=== PATIENT | male | born 2000 | race Caucasian/White ===

== ENCOUNTER 2025-04-03 14:06 | Emergency (ER) | payer BC, SELFPAY ==
--- OUTSIDE RECORDS SUMMARY | 2025-04-03 14:11 | XMS_ITS | Encounter Summary ---
Author Organization [facility] Address [address] [place] [address] Care Team Providers Care Business Systems Advisor Name Role Phone Opal Angela MD Primary Care Provider [phone] Encounter Details Date Type Department Care Team (Late st Contact Info) Description 1999 Outpatient Historical [facility] Pediatrics [facility] [address] [place] [address] Opal Angela MD [address] [place] [address] Social History Tobacco Use Types Packs/Day Years Used Date Smoking Tobacco: Never Assessed Sex and Gender Information Value Date Recorded Sex Assigned at Not on file Legal Sex Male 3:17 AM TOE POUNDER Gender Identity Not on file Sexual Orientation Not on file documented as of this encounter Plan of Treatment Not on file documented as of this encounter Visit Diagnoses Not on filedocumented in this encounter Care Teams Business Systems Advisor Relationship Specialty Start Date End Date pOal Angela MD [address] [place] [address] PCP - General 05/26/08 documented as of this encounter
--- OUTSIDE RECORDS SUMMARY | 2025-04-03 14:11 | XMS_ITS | Encounter Summary ---
Author Organization [facility] Address [address] [place] [address] Care Team Providers Care Certified Master Locksmith Name Role Phone Opal Angela MD Primary Care Provider [phone] Encounter Details Date Type Department Care Team (Late st Contact Info) Description 10/06/2004 Outpatient Historical [facility] Pediatrics [facility] [address] [place] [address] Opal Angela MD [address] [place] [address] Social History Tobacco Use Types Packs/Day Years Used Date Smoking Tobacco: Never Assessed Sex and Gender Information Value Date Recorded Sex Assigned at Not on file Legal Sex Male 3:17 AM INNOVATION MANAGER Gender Identity Not on file Sexual Orientation Not on file documented as of this encounter Plan of Treatment Not on file documented as of this encounter Visit Diagnoses Not on filedocumented in this encounter Care Teams Certified Master Locksmith Relationship Specialty Start Date End Date Opal Angela MD [address] [place] [address] PCP - General 05/26/08 documented as of this encounter
--- OUTSIDE RECORDS SUMMARY | 2025-04-03 14:12 | XMS_ITS | Encounter Summary ---
Author Organization [facility] Address [address] [place] [address] Care Team Providers Care Mine Supervisor Name Role Phone Opal Angela MD Primary Care Provider [phone] Encounter Details Date Type Department Care Team (Late st Contact Info) Description 08/31/2005 Outpatient Historical [facility] Pediatrics [facility] [address] [place] [address] Opal Angela MD [address] [place] [address] Social History Tobacco Use Types Packs/Day Years Used Date Smoking Tobacco: Never Assessed Sex and Gender Information Value Date Recorded Sex Assigned at Not on file Legal Sex Male 3:17 AM ENGINEERING AIDE Gender Identity Not on file Sexual Orientation Not on file documented as of this encounter Plan of Treatment Not on file documented as of this encounter Visit Diagnoses Not on filedocumented in this encounter Care Teams Mine Supervisor Relationship Specialty Start Date End Date Opal Angela MD [address] [place] [address] PCP - General 05/26/08 documented as of this encounter
--- OUTSIDE RECORDS SUMMARY | 2025-04-03 14:12 | XMS_ITS | Encounter Summary ---
Author Organization [facility] Address [address] [place] [address] Care Team Providers Care Pattern Hanger Name Role Phone Opal Angela MD Primary Care Provider [phone] Encounter Details Date Type Department Care Team (Late st Contact Info) Description 08/17/2005 Outpatient Historical [facility] Pediatrics [facility] [address] [facility] [address] Opal Angela MD [address] [place] [address] Social History Tobacco Use Types Packs/Day Years Used Date Smoking Tobacco: Never Assessed Sex and Gender Information Value Date Recorded Sex Assigned at Not on file Legal Sex Male 3:17 AM VAMP THROATER Gender Identity Not on file Sexual Orientation Not on file documented as of this encounter Plan of Treatment Not on file documented as of this encounter Visit Diagnoses Not on filedocumented in this encounter Care Teams Pattern Hanger Relationship Specialty Start Date End Date Opal Angela MD [address] [place] [address] PCP - General 05/26/08 documented as of this encounter
--- OUTSIDE RECORDS SUMMARY | 2025-04-03 14:12 | XMS_ITS | Encounter Summary ---
Author Organization [facility] Address [address] [place] [address] Care Team Providers Care Ice Cream Maker Name Role Phone Opal Angela MD Primary Care Provider [phone] Encounter Details Date Type Department Care Team (Late st Contact Info) Description 06/14/2005 Outpatient Historical [facility] Pediatrics [facility] [address] [place] [address] Jamee Landry MD NO ADDRESS ON FILE Social History Tobacco Use Types Packs/Day Years Used Date Smoking Tobacco: Never Assessed Sex and Gender Information Value Date Recorded Sex Assigned at Not on file Legal Sex Male 3:17 AM VOICE TEACHER Gender Identity Not on file Sexual Orientation Not on file documented as of this encounter Plan of Treatment Not on file documented as of this encounter Visit Diagnoses Not on filedocumented in this encounter Care Teams Ice Cream Maker Relationship Specialty Start Date End Date Opal Angela MD [address] [place] [address] PCP - General 05/26/08 documented as of this encounter
--- OUTSIDE RECORDS SUMMARY | 2025-04-03 14:12 | XMS_ITS | Encounter Summary ---
Author Organization [facility] Address [address] [place] [address] Care Team Providers Care Flap Maker Name Role Phone Opal Angela MD Primary Care Provider [phone] Encounter Details Date Type Department Care Team (Late st Contact Info) Description 10/19/2000 Outpatient Historical [facility] Pediatrics [facility] [address] [place] [address] Opal Angela MD [address] [place] [address] Social History Tobacco Use Types Packs/Day Years Used Date Smoking Tobacco: Never Assessed Sex and Gender Information Value Date Recorded Sex Assigned at Not on file Legal Sex Male 3:17 AM BODY MECHANIC Gender Identity Not on file Sexual Orientation Not on file documented as of this encounter Plan of Treatment Not on file documented as of this encounter Visit Diagnoses Not on filedocumented in this encounter Care Teams Flap Maker Relationship Specialty Start Date End Date Opal Angela MD [address] [place] [address] PCP - General 05/26/08 documented as of this encounter
--- OUTSIDE RECORDS SUMMARY | 2025-04-03 14:12 | XMS_ITS | Encounter Summary ---
Author Organization [facility] Address [address] [place] [address] Care Team Providers Care Risk Lead Name Role Phone Opal Angela MD Primary Care Provider [phone] Encounter Details Date Type Department Care Team (Late st Contact Info) Description 01/14/[address] [facility] Pediatrics [facility] [address] [facility] [place] [address] Alix Ortega MD [address] [address] Social History Tobacco Use Types Packs/Day Years Used Date Smoking Tobacco: Never Assessed Sex and Gender Information Value Date Recorded Sex Assigned at Not on file Legal Sex Male 3:17 AM METAL MIXER Gender Identity Not on file Sexual Orientation Not on file documented as of this encounter Plan of Treatment Not on file documented as of this encounter Visit Diagnoses Not on filedocumented in this encounter Care Teams Risk Lead Relationship Specialty Start Date End Date Opal Angela MD [address] [place] [address] PCP - General 05/26/08 documented as of this encounter
--- OUTSIDE RECORDS SUMMARY | 2025-04-03 14:12 | XMS_ITS | Encounter Summary ---
Author Organization [facility] Address [address] [place] [address] Care Team Providers Care Radiology Ct Technologist Name Role Phone Opal Angela MD Primary Care Provider [phone] Encounter Details Date Type Department Care Team (Late st Contact Info) Description 12/06/2004 Outpatient Historical [facility] [address] [facility] [facility] [place] [address] Opal Angela MD [address] [place] [address] Social History Tobacco Use Types Packs/Day Years Used Date Smoking Tobacco: Never Assessed Sex and Gender Information Value Date Recorded Sex Assigned at Not on file Legal Sex Male 3:17 AM TAPE EDGE MACHINE OPERATOR Gender Identity Not on file Sexual Orientation Not on file documented as of this encounter Plan of Treatment Not on file documented as of this encounter Visit Diagnoses Not on filedocumented in this encounter Care Teams Radiology Ct Technologist Relationship Specialty Start Date End Date Opal Angela MD [address] [place] [address] PCP - General 05/26/08 documented as of this encounter
--- OUTSIDE RECORDS SUMMARY | 2025-04-03 14:12 | XMS_ITS | Encounter Summary ---
Author Organization [facility] Address [address] [place] [address] Care Team Providers Care Motion Picture Equipment Supervisor Name Role Phone Opal Angela MD Primary Care Provider Encounter Details Date Type Department Care Team (Late st Contact Info) Description 11/20/2000 Outpatient Historical [facility] Pediatrics [facility] [address] [place] [address] Opal Angela MD [address] [place] [address] Social History Tobacco Use Types Packs/Day Years Used Date Smoking Tobacco: Never Assessed Sex and Gender Information Value Date Recorded Sex Assigned at Not on file Legal Sex Male 3:17 AM GRADUATE INTERN Gender Identity Not on file Sexual Orientation Not on file documented as of this encounter Plan of Treatment Not on file documented as of this encounter Visit Diagnoses Not on filedocumented in this encounter Care Teams Motion Picture Equipment Supervisor Relationship Specialty Start Date End Date Opal Angela MD [address] [place] [address] PCP - General 05/26/08 documented as of this encounter
--- OUTSIDE RECORDS SUMMARY | 2025-04-03 14:12 | XMS_ITS | Encounter Summary ---
Author Organization [facility] Address [address] [place] [address] Care Team Providers Care Ticket Printer Name Role Phone Opal Angela MD Primary Care Provider [phone] Encounter Details Date Type Department Care Team (Late st Contact Info) Description 05/27/2001 Outpatient Historical [facility] Pediatrics [facility] [address] [place] [address] Opal Angela MD [address] [place] [address] Social History Tobacco Use Types Packs/Day Years Used Date Smoking Tobacco: Never Assessed Sex and Gender Information Value Date Recorded Sex Assigned at Not on file Legal Sex Male 3:17 AM ADULT EDUCATION MANAGER Gender Identity Not on file Sexual Orientation Not on file documented as of this encounter Plan of Treatment Not on file documented as of this encounter Visit Diagnoses Not on filedocumented in this encounter Care Teams Ticket Printer Relationship Specialty Start Date End Date Opal Angela MD [address] [place] [address] PCP - General 05/26/08 documented as of this encounter
--- OUTSIDE RECORDS SUMMARY | 2025-04-03 14:12 | XMS_ITS | Encounter Summary ---
Author Organization [facility] Address [address] [place] [address] Care Team Providers Care Relationship Management Lead Name Role Phone Opal Angela MD Primary Care Provider [phone] Encounter Details Date Type Department Care Team (Late st Contact Info) Description 01/30/2005 Outpatient Historical [facility]s [facility] [address] [facility] [place] [address] Opal Angela MD [address] [place] [address] Social History Tobacco Use Types Packs/Day Years Used Date Smoking Tobacco: Never Assessed Sex and Gender Information Value Date Recorded Sex Assigned at Not on file Legal Sex Male 3:17 AM TEST ENGINEERING MANAGER Gender Identity Not on file Sexual Orientation Not on file documented as of this encounter Plan of Treatment Not on file documented as of this encounter Visit Diagnoses Not on filedocumented in this encounter Care Teams Relationship Management Lead Relationship Specialty Start Date End Date Opal Angela MD [address] [place] [address] PCP - General 05/26/08 documented as of this encounter
--- OUTSIDE RECORDS SUMMARY | 2025-04-03 14:12 | XMS_ITS | Encounter Summary ---
Author Organization [facility] Address [address] [place] [address] Care Team Providers Care Oxygen Equipment Technician Name Role Phone Opal Angela MD Primary Care Provider Encounter Details Date Type Department Care Team (Late st Contact Info) Description 1999 Outpatient Historical [facility] Pediatrics [facility] [address] [address] Opal Angela MD [address] [place] [address] Social History Tobacco Use Types Packs/Day Years Used Date Smoking Tobacco: Never Assessed Sex and Gender Information Value Date Recorded Sex Assigned at Not on file Legal Sex Male 3:17 AM PUBLIC HEALTH EDUCATOR Gender Identity Not on file Sexual Orientation Not on file documented as of this encounter Plan of Treatment Not on file documented as of this encounter Visit Diagnoses Not on filedocumented in this encounter Care Teams Oxygen Equipment Technician Relationship Specialty Start Date End Date Opal Angela MD [address] [place] [address] PCP - General 05/26/08 documented as of this encounter
--- OUTSIDE RECORDS SUMMARY | 2025-04-03 14:12 | XMS_ITS | Encounter Summary ---
Author Organization [facility] Address [address] [place] [address] Care Team Providers Care Facilities Maintenance Engineer Name Role Phone Opal Angela MD Primary Care Provider [phone] Encounter Details Date Type Department Care Team (Late st Contact Info) Description 03/31/2000 Outpatient Historical [facility] Pediatrics [facility] [address] [place] [place] [address] Alix Ortega MD [address] [address] Social History Tobacco Use Types Packs/Day Years Used Date Smoking Tobacco: Never Assessed Sex and Gender Information Value Date Recorded Sex Assigned at Not on file Legal Sex Male 3:17 AM APPLICATOR SPRAYER Gender Identity Not on file Sexual Orientation Not on file documented as of this encounter Plan of Treatment Not on file documented as of this encounter Visit Diagnoses Not on filedocumented in this encounter Care Teams Facilities Maintenance Engineer Relationship Specialty Start Date End Date Opal Angela MD [address] [place] [address] PCP - General 05/26/08 documented as of this encounter
--- OUTSIDE RECORDS SUMMARY | 2025-04-03 14:12 | XMS_ITS | Encounter Summary ---
Author Organization [facility] Address [address] [place] [address] Care Team Providers Care Wood Machinist Name Role Phone Opal Angela MD Primary Care Provider [phone] Encounter Details Date Type Department Care Team (Late st Contact Info) Description 10/02/2005 Outpatient Historical [facility]s [facility] [address] [facility] [place] [address] Opal Angela MD [address] [place] [address] Social History Tobacco Use Types Packs/Day Years Used Date Smoking Tobacco: Never Assessed Sex and Gender Information Value Date Recorded Sex Assigned at Not on file Legal Sex Male 3:17 AM TAP GRINDER Gender Identity Not on file Sexual Orientation Not on file documented as of this encounter Plan of Treatment Not on file documented as of this encounter Visit Diagnoses Not on filedocumented in this encounter Care Teams Wood Machinist Relationship Specialty Start Date End Date Opal Angela MD [address] [place] [address] PCP - General 05/26/08 documented as of this encounter
--- OUTSIDE RECORDS SUMMARY | 2025-04-03 14:12 | XMS_ITS | Encounter Summary ---
Author Organization [facility] Address [address] [place] [address] Care Team Providers Care Advanced Manufacturing Vice President Name Role Phone Opal Angela MD Primary Care Provider [phone] Encounter Details Date Type Department Care Team (Late st Contact Info) Description 04/12/2000 Outpatient Historical [facility] Pediatrics [facility] [address] [place] [address] Opal Angela MD [address] [place] [address] Social History Tobacco Use Types Packs/Day Years Used Date Smoking Tobacco: Never Assessed Sex and Gender Information Value Date Recorded Sex Assigned at Not on file Legal Sex Male 3:17 AM MINIBUS DRIVER Gender Identity Not on file Sexual Orientation Not on file documented as of this encounter Plan of Treatment Not on file documented as of this encounter Visit Diagnoses Not on filedocumented in this encounter Care Teams Advanced Manufacturing Vice President Relationship Specialty Start Date End Date Opal Angela MD [address] [place] [address] PCP - General 05/26/08 documented as of this encounter
--- OUTSIDE RECORDS SUMMARY | 2025-04-03 14:12 | XMS_ITS | Encounter Summary ---
Author Organization [facility] Address [address] [place] [address] Care Team Providers Care Knot Tier Name Role Phone Opal Angela MD Primary Care Provider [phone] Encounter Details Date Type Department Care Team (Late st Contact Info) Description 07/30/[address] [facility] Pediatrics [facility] [address] [place] [address] Opal Angela MD [address] [place] [address] Social History Tobacco Use Types Packs/Day Years Used Date Smoking Tobacco: Never Assessed Sex and Gender Information Value Date Recorded Sex Assigned at Not on file Legal Sex Male 3:17 AM ANGLESMITH HELPER Gender Identity Not on file Sexual Orientation Not on file documented as of this encounter Plan of Treatment Not on file documented as of this encounter Visit Diagnoses Not on filedocumented in this encounter Care Teams Knot Tier Relationship Specialty Start Date End Date Opal Angela MD [address] [place] [address] PCP - General 05/26/08 documented as of this encounter
--- OUTSIDE RECORDS SUMMARY | 2025-04-03 14:12 | XMS_ITS | Encounter Summary ---
Author Organization [facility] Address [address] [place] [address] Care Team Providers Care Roof Mechanic Name Role Phone Opal Angela MD Primary Care Provider Encounter Details Date Type Department Care Team (Late st Contact Info) Description 10/04/2007 Outpatient Historical [facility] Pediatrics [facility] [address] [place] [address] Opal Angela MD [address] [place] [address] Social History Tobacco Use Types Packs/Day Years Used Date Smoking Tobacco: Never Assessed Sex and Gender Information Value Date Recorded Sex Assigned at Not on file Legal Sex Male 3:17 AM LENS INSERTER Gender Identity Not on file Sexual Orientation Not on file documented as of this encounter Plan of Treatment Not on file documented as of this encounter Visit Diagnoses Not on filedocumented in this encounter Care Teams Roof Mechanic Relationship Specialty Start Date End Date Opal Angela MD [address] [place] [address] PCP - General 05/26/08 documented as of this encounter
--- OUTSIDE RECORDS SUMMARY | 2025-04-03 14:12 | XMS_ITS | Encounter Summary ---
Author Organization [facility] Address [address] [place] [address] Care Team Providers Care Accident Report Clerk Name Role Phone Opal Angela MD Primary Care Provider [phone] Encounter Details Date Type Department Care Team (Late st Contact Info) Description 1999 Outpatient Historical [facility]s [facility] [address] [place] [address] Opal Angela MD [address] [place] [address] Social History Tobacco Use Types Packs/Day Years Used Date Smoking Tobacco: Never Assessed Sex and Gender Information Value Date Recorded Sex Assigned at Not on file Legal Sex Male 3:17 AM BROADBAND ENGINEER Gender Identity Not on file Sexual Orientation Not on file documented as of this encounter Plan of Treatment Not on file documented as of this encounter Visit Diagnoses Not on filedocumented in this encounter Care Teams Accident Report Clerk Relationship Specialty Start Date End Date Opal Angela MD [address] [place] [address] PCP - General 05/26/08 documented as of this encounter
--- OUTSIDE RECORDS SUMMARY | 2025-04-03 14:12 | XMS_ITS | Encounter Summary ---
Author Organization [facility] Address [address] [place] [address] Care Team Providers Care Apprise Counselor Name Role Phone Opal Angela MD Primary Care Provider [phone] Encounter Details Date Type Department Care Team (Late st Contact Info) Description 05/31/2004 Outpatient Historical [facility] Pediatrics [facility] [address] [place] [address] Opal Angela MD [address] [place] [address] Social History Tobacco Use Types Packs/Day Years Used Date Smoking Tobacco: Never Assessed Sex and Gender Information Value Date Recorded Sex Assigned at Not on file Legal Sex Male 3:17 AM RETAIL SALES ASSOCIATE Gender Identity Not on file Sexual Orientation Not on file documented as of this encounter Plan of Treatment Not on file documented as of this encounter Visit Diagnoses Not on filedocumented in this encounter Care Teams Apprise Counselor Relationship Specialty Start Date End Date Opal Angela MD [address] [place] [address] PCP - General 05/26/08 documented as of this encounter
--- OUTSIDE RECORDS SUMMARY | 2025-04-03 14:12 | XMS_ITS | Encounter Summary ---
Author Organization [facility] Address [address] [place] [address] Care Team Providers Care Finance Mgr Name Role Phone Opal Angela MD Primary Care Provider [phone] Encounter Details Date Type Department Care Team (Late st Contact Info) Description 01/08/[address] [facility] Pediatrics [facility] [address] [facility] [place] [address] Opal Angela MD [address] [place] [address] Social History Tobacco Use Types Packs/Day Years Used Date Smoking Tobacco: Never Assessed Sex and Gender Information Value Date Recorded Sex Assigned at Not on file Legal Sex Male 3:17 AM IN HOME TUTOR Gender Identity Not on file Sexual Orientation Not on file documented as of this encounter Plan of Treatment Not on file documented as of this encounter Visit Diagnoses Not on filedocumented in this encounter Care Teams Finance Mgr Relationship Specialty Start Date End Date Opal Angela MD [address] [place] [address] PCP - General 05/26/08 documented as of this encounter
--- OUTSIDE RECORDS SUMMARY | 2025-04-03 14:12 | XMS_ITS | Encounter Summary ---
Author Organization [facility] Address [address] [place] [address] Care Team Providers Care Parachute Manufacturing Supervisor Name Role Phone Opal Angela MD Primary Care Provider [phone] Encounter Details Date Type Department Care Team (Late st Contact Info) Description 02/13/2006 Outpatient Historical [facility] Pediatrics [facility] [address] [facility] [place] [address] Opal Angela MD [address] [place] [address] Social History Tobacco Use Types Packs/Day Years Used Date Smoking Tobacco: Never Assessed Sex and Gender Information Value Date Recorded Sex Assigned at Not on file Legal Sex Male 3:17 AM RECEIVING MANAGER Gender Identity Not on file Sexual Orientation Not on file documented as of this encounter Plan of Treatment Not on file documented as of this encounter Visit Diagnoses Not on filedocumented in this encounter Care Teams Parachute Manufacturing Supervisor Relationship Specialty Start Date End Date Opal Angela MD [address] [place] [address] PCP - General 05/26/08 documented as of this encounter
--- OUTSIDE RECORDS SUMMARY | 2025-04-03 14:12 | XMS_ITS | Encounter Summary ---
Author Organization [facility] Address [address] [place] [address] Care Team Providers Care Automotive Parts Advisor Name Role Phone Opal Angela MD Primary Care Provider [phone] Encounter Details Date Type Department Care Team (Late st Contact Info) Description 07/01/2001 Outpatient Historical [facility] [address] [place] [address] Opal Angela MD [address] [place] [address] Social History Tobacco Use Types Packs/Day Years Used Date Smoking Tobacco: Never Assessed Sex and Gender Information Value Date Recorded Sex Assigned at Not on file Legal Sex Male 3:17 AM RECREATION OFFICER Gender Identity Not on file Sexual Orientation Not on file documented as of this encounter Plan of Treatment Not on file documented as of this encounter Visit Diagnoses Not on filedocumented in this encounter Care Teams Automotive Parts Advisor Relationship Specialty Start Date End Date Opal Angela MD [address] [place] [address] PCP - General 05/26/08 documented as of this encounter
--- OUTSIDE RECORDS SUMMARY | 2025-04-03 14:12 | XMS_ITS | Encounter Summary ---
Author Organization [facility] Address [address] [place] [address] Care Team Providers Care Learning Consultant Name Role Phone Opal Angela MD Primary Care Provider [phone] Encounter Details Date Type Department Care Team (Late st Contact Info) Description 07/23/2000 Outpatient Historical [facility] Pediatrics [facility] [address] [place] [address] Opal Angela MD [address] [place] [address] Social History Tobacco Use Types Packs/Day Years Used Date Smoking Tobacco: Never Assessed Sex and Gender Information Value Date Recorded Sex Assigned at Not on file Legal Sex Male 3:17 AM DECK MATE Gender Identity Not on file Sexual Orientation Not on file documented as of this encounter Plan of Treatment Not on file documented as of this encounter Visit Diagnoses Not on filedocumented in this encounter Care Teams Learning Consultant Relationship Specialty Start Date End Date Opal Angela MD [address] [place] [address] PCP - General 05/26/08 documented as of this encounter
--- OUTSIDE RECORDS SUMMARY | 2025-04-03 14:12 | XMS_ITS | Encounter Summary ---
Author Organization [facility] Address [address] [place] [address] Care Team Providers Care Pot Puller Name Role Phone Opal Angela MD Primary Care Provider [phone] Encounter Details Date Type Department Care Team (Late st Contact Info) Description 08/13/2001 Outpatient Historical [facility] Pediatrics [facility] [address] [place] [address] Opal Angela MD [address] [place] [address] Social History Tobacco Use Types Packs/Day Years Used Date Smoking Tobacco: Never Assessed Sex and Gender Information Value Date Recorded Sex Assigned at Not on file Legal Sex Male 3:17 AM HOME INSURANCE AGENT Gender Identity Not on file Sexual Orientation Not on file documented as of this encounter Plan of Treatment Not on file documented as of this encounter Visit Diagnoses Not on filedocumented in this encounter Care Teams Pot Puller Relationship Specialty Start Date End Date Opal Angela MD [address] [place] [address] PCP - General 05/26/08 documented as of this encounter
--- OUTSIDE RECORDS SUMMARY | 2025-04-03 14:12 | XMS_ITS | Encounter Summary ---
Author Organization [facility] Address [address] [place] [address] Care Team Providers Care Metallurgical Specialist Name Role Phone Opal Angela MD Primary Care Provider [phone] Encounter Details Date Type Department Care Team (Late st Contact Info) Description 1999 Outpatient Historical [facility] Pediatrics [facility] [address] [place] [address] Opal Angela MD [address] [place] [address] Social History Tobacco Use Types Packs/Day Years Used Date Smoking Tobacco: Never Assessed Sex and Gender Information Value Date Recorded Sex Assigned at Not on file Legal Sex Male 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
--- OUTSIDE RECORDS SUMMARY | 2025-04-03 14:12 | XMS_ITS | Encounter Summary ---
Author Organization [facility] Address [address] [place] [address] Care Team Providers Care Front End Drupal Developer Name Role Phone Opal Angela MD Primary Care Provider [phone] Encounter Details Date Type Department Care Team (Late st Contact Info) Description 05/11/2000 Outpatient Historical [facility] Pediatrics [facility] [address] [facility] [place] [address] Opal Angela MD [address] [place] [address] Social History Tobacco Use Types Packs/Day Years Used Date Smoking Tobacco: Never Assessed Sex and Gender Information Value Date Recorded Sex Assigned at Not on file Legal Sex Male 3: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
--- OUTSIDE RECORDS SUMMARY | 2025-04-03 14:12 | XMS_ITS | Encounter Summary ---
Author Organization [facility] Address [address] [place] [address] Care Team Providers Care Lab Technician Name Role Phone Opal Angela MD Primary Care Provider [phone] Encounter Details Date Type Department Care Team (Late st Contact Info) Description 06/18/2001 Outpatient Historical [facility] Pediatrics [facility] 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
--- OUTSIDE RECORDS SUMMARY | 2025-04-03 14:12 | XMS_ITS | Encounter Summary ---
Author Organization [facility] Address [address] [place] [address] Care Team Providers Care Coater Carbon Paper Name Role Phone Opal Angela MD Primary Care Provider [phone] Encounter Details Date Type Department Care Team (Late st Contact Info) Description 11/25/2005 Outpatient Historical [facility] Pediatrics [facility] [address] [place] [address] Jamee Landry MD NO ADDRESS ON FILE Social History Tobacco Use Types Packs/Day Years Used Date Smoking Tobacco: Never Assessed Sex and Gender Information Value Date Recorded Sex Assigned at Not on file Legal Sex Male 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
--- OUTSIDE RECORDS SUMMARY | 2025-04-03 14:12 | XMS_ITS | Encounter Summary ---
Author Organization [facility] Address [address] [place] [address] Care Team Providers Care Diabetes Educator Name Role Phone Opal Angela MD Primary Care Provider [phone] Encounter Details Date Type Department Care Team (Late st Contact Info) Description 03/28/[address] [facility] Pediatrics [facility] [address] [place] [address] Opal Angela MD [address] [place] [address] Social History Tobacco Use Types Packs/Day Years Used Date Smoking Tobacco: Never Assessed Sex and Gender Information Value Date Recorded Sex Assigned at Not on file Legal Sex Male 3:17 AM CHIN STRAP SEWER Gender Identity Not on file Sexual Orientation Not on file documented as of this encounter Plan of Treatment Not on file documented as of this encounter Visit Diagnoses Not on filedocumented in this encounter Care Teams Diabetes Educator Relationship Specialty Start Date End Date Opal Angela MD [address] [place] [address] PCP - General 05/26/08 documented as of this encounter
--- OUTSIDE RECORDS SUMMARY | 2025-04-03 14:12 | XMS_ITS | Encounter Summary ---
Author Organization [facility] Address [address] [place] [address] Care Team Providers Care Stoneworker Name Role Phone Opal Angela MD Primary Care Provider [phone] Encounter Details Date Type Department Care Team (Late st Contact Info) Description 08/21/2000 Outpatient Historical [facility] Pediatrics [facility] [address] [place] [address] Opal Angela MD [address] [place] [address] Social History Tobacco Use Types Packs/Day Years Used Date Smoking Tobacco: Never Assessed Sex and Gender Information Value Date Recorded Sex Assigned at Not on file Legal Sex Male 3:17 AM PERSONNEL SPECIALIST Gender Identity Not on file Sexual Orientation Not on file documented as of this encounter Plan of Treatment Not on file documented as of this encounter Visit Diagnoses Not on filedocumented in this encounter Care Teams Stoneworker Relationship Specialty Start Date End Date Opal Angela MD [address] [place] [address] PCP - General 05/26/08 documented as of this encounter
--- OUTSIDE RECORDS SUMMARY | 2025-04-03 14:12 | XMS_ITS | Encounter Summary ---
Author Organization [facility] Address [address] [place] [address] Care Team Providers Care Firmware Test Engineer Name Role Phone Opal Angela MD Primary Care Provider [phone] Encounter Details Date Type Department Care Team (Late st Contact Info) Description 03/31/2005 Outpatient Historical [facility] Pediatrics [facility] [address] [facility] [place] [address] Opal Angela MD [address] [place] [address] Social History Tobacco Use Types Packs/Day Years Used Date Smoking Tobacco: Never Assessed Sex and Gender Information Value Date Recorded Sex Assigned at Not on file Legal Sex Male 3:17 AM CAMP GUARD Gender Identity Not on file Sexual Orientation Not on file documented as of this encounter Plan of Treatment Not on file documented as of this encounter Visit Diagnoses Not on filedocumented in this encounter Care Teams Firmware Test Engineer Relationship Specialty Start Date End Date Opal Angela MD [address] [place] [address] PCP - General 05/26/08 documented as of this encounter
--- OUTSIDE RECORDS SUMMARY | 2025-04-03 14:12 | XMS_ITS | Encounter Summary ---
Author Organization [facility] Address [address] [place] [address] Care Team Providers Care Medical Record Coder Name Role Phone Opal Angela MD Primary Care Provider [phone] Encounter Details Date Type Department Care Team (Late st Contact Info) Description 12/10/2000 Outpatient Historical [facility] Pediatrics [facility] [address] [facility] [place] [address] Alix Ortega MD [address] [address] Social History Tobacco Use Types Packs/Day Years Used Date Smoking Tobacco: Never Assessed Sex and Gender Information Value Date Recorded Sex Assigned at Not on file Legal Sex Male 3:17 AM SEED 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
--- OUTSIDE RECORDS SUMMARY | 2025-04-03 14:12 | XMS_ITS | Encounter Summary ---
Author Organization [facility] Address [address] [place] [address] Care Team Providers Care Mine Motor Operator Name Role Phone Opal Angela MD Primary Care Provider Encounter Details Date Type Department Care Team (Late st Contact Info) Description 08/09/2004 Outpatient Historical [facility]s [facility] [address] [place] [address] Opal Angela MD [address] [place] [address] Social History Tobacco Use Types Packs/Day Years Used Date Smoking Tobacco: Never Assessed Sex and Gender Information Value Date Recorded Sex Assigned at Not on file Legal 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
--- OUTSIDE RECORDS SUMMARY | 2025-04-03 14:12 | XMS_ITS | Encounter Summary ---
Author Organization [facility] Address [address] [place] [address] Care Team Providers Care Fitting Supervisor Name Role Phone Opal Angela MD Primary Care Provider [phone] Encounter Details Date Type Department Care Team (Late st Contact Info) Description 03/03/2005 Outpatient Historical [facility]s 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
--- OUTSIDE RECORDS SUMMARY | 2025-04-03 14:12 | XMS_ITS | Encounter Summary ---
Author Organization [facility] Address [address] [place] [address] Care Team Providers Care Gas Shovel Operator Name Role Phone Opal Angela MD Primary Care Provider [phone] Encounter Details Date Type Department Care Team (Late st Contact Info) Description 08/15/2000 Outpatient Historical [facility] Pediatrics [facility] [address] [place] [address] Opal Angela MD [address] [place] [address] Social History Tobacco Use Types Packs/Day Years Used Date Smoking Tobacco: Never Assessed Sex and Gender Information Value Date Recorded Sex Assigned at Not on file Legal Sex Male 3: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
--- OUTSIDE RECORDS SUMMARY | 2025-04-03 14:12 | XMS_ITS | Encounter Summary ---
Author Organization [facility] Address [address] [place] [address] Care Team Providers Care Chief I Dispatcher Name Role Phone Opal Angela MD Primary Care Provider [phone] Encounter Details Date Type Department Care Team (Late st Contact Info) Description 06/14/[address] [facility] Pediatrics [facility] [address] [place] [address] Jamee Landry MD NO ADDRESS ON FILE Social History Tobacco Use Types Packs/Day Years Used Date Smoking Tobacco: Never Assessed Sex and Gender Information Value Date Recorded Sex Assigned at Not on file Legal Sex Male 3:17 AM GROUP RESERVATIONS COORDINATOR Gender Identity Not on file Sexual Orientation Not on file documented as of this encounter Plan of Treatment Not on file documented as of this encounter Visit Diagnoses Not on filedocumented in this encounter Care Teams Chief I Dispatcher Relationship Specialty Start Date End Date Opal Angela MD [address] [place] [address] PCP - General 05/26/08 documented as of this encounter
--- OUTSIDE RECORDS SUMMARY | 2025-04-03 14:12 | XMS_ITS | Encounter Summary ---
Author Organization [facility] Address [address] [place] [address] Care Team Providers Care Sap Bpc Developer Name Role Phone Opal Angela MD Primary Care Provider [phone] Encounter Details Date Type Department Care Team (Late st Contact Info) Description 11/11/2004 Outpatient Historical [facility] Pediatrics [facility] [address] [facility] [place] [address] Opal Angela MD [address] [place] [address] Social History Tobacco Use Types Packs/Day Years Used Date Smoking Tobacco: Never Assessed Sex and Gender Information Value Date Recorded Sex Assigned at Not on file Legal Sex Male 3:17 AM MARKETING 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
--- OUTSIDE RECORDS SUMMARY | 2025-04-03 14:12 | XMS_ITS | Encounter Summary ---
Author Organization [facility] Address [address] [place] [address] Care Team Providers Care Music Journalist Name Role Phone Opal Angela MD Primary Care Provider [phone] Encounter Details Date Type Department Care Team (Late st Contact Info) Description 01/26/2000 Outpatient Historical [facility] Pediatrics [facility] [address] [place] [address] Opal Angela MD [address] [place] [address] Social History Tobacco Use Types Packs/Day Years Used Date Smoking Tobacco: Never Assessed Sex and Gender Information Value Date Recorded Sex Assigned at Not on file Legal Sex Male 3:17 AM FRUIT PACKER Gender Identity Not on file Sexual Orientation Not on file documented as of this encounter Plan of Treatment Not on file documented as of this encounter Visit Diagnoses Not on filedocumented in this encounter Care Teams Music Journalist Relationship Specialty Start Date End Date Opal Angela MD [address] [place] [address] PCP - General 05/26/08 documented as of this encounter
--- OUTSIDE RECORDS SUMMARY | 2025-04-03 14:12 | XMS_ITS | Encounter Summary ---
Author Organization [facility] Address [address] [place] [address] Care Team Providers Care Manager Club Name Role Phone Opal Angela MD Primary Care Provider [phone] Encounter Details Date Type Department Care Team (Late st Contact Info) Description 06/28/2000 Outpatient Historical [facility] Pediatrics [facility] [address] [place] [address] Opal Angela MD [address] [place] [address] Social History Tobacco Use Types Packs/Day Years Used Date Smoking Tobacco: Never Assessed Sex and Gender Information Value Date Recorded Sex Assigned at Not on file Legal Sex Male 3:17 AM WEIR FISHER Gender Identity Not on file Sexual Orientation Not on file documented as of this encounter Plan of Treatment Not on file documented as of this encounter Visit Diagnoses Not on filedocumented in this encounter Care Teams Manager Club Relationship Specialty Start Date End Date Opal Angela MD [address] [place] [address] PCP - General 05/26/08 documented as of this encounter
--- OUTSIDE RECORDS SUMMARY | 2025-04-03 14:12 | XMS_ITS | Encounter Summary ---
Author Organization [facility] Address [address] [place] [address] Care Team Providers Care Quality Assurance Monitor Name Role Phone Opal Angela MD Primary Care Provider [phone] Encounter Details Date Type Department Care Team (Late st Contact Info) Description 1999 Outpatient Historical [facility] Pediatrics [facility] [address] [place] [address] Opal Angela MD [address] [place] [address] Social History Tobacco Use Types Packs/Day Years Used Date Smoking Tobacco: Never Assessed Sex and Gender Information Value Date Recorded Sex Assigned at Not on file Legal Sex Male 3: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
--- OUTSIDE RECORDS SUMMARY | 2025-04-03 14:12 | XMS_ITS | Encounter Summary ---
Author Organization [facility] Address [address] [place] [address] Care Team Providers Care Employee Wellness/Fitness Coordinator Name Role Phone Opal Angela MD Primary Care Provider [phone] Encounter Details Date Type Department Care Team (Late st Contact Info) Description 02/14/2001 Outpatient Historical [facility] Pediatrics [facility] [address] [facility] [address] Opal Angela MD [address] [place] [address] Social History Tobacco Use Types Packs/Day Years Used Date Smoking Tobacco: Never Assessed Sex and Gender Information Value Date Recorded Sex Assigned at Not on file Legal Sex Male 3:17 AM OPTOELECTRONIC TECHNICIAN Gender Identity Not on file Sexual Orientation Not on file documented as of this encounter Plan of Treatment Not on file documented as of this encounter Visit Diagnoses Not on filedocumented in this encounter Care Teams Employee Wellness/Fitness Coordinator Relationship Specialty Start Date End Date Opal Angela MD [address] [place] [address] PCP - General 05/26/08 documented as of this encounter
--- OUTSIDE RECORDS SUMMARY | 2025-04-03 14:12 | XMS_ITS | Encounter Summary ---
Author Organization [facility] Address [address] [place] [address] Care Team Providers Care Muffler Hand Name Role Phone Opal Angela MD Primary Care Provider [phone] Encounter Details Date Type Department Care Team (Late st Contact Info) Description 10/02/2001 Outpatient Historical [facility] Pediatrics [facility] [address] [place] [address] Amy Samano MD [address] [address] Social History Tobacco Use Types Packs/Day Years Used Date Smoking Tobacco: Never Assessed Sex and Gender Information Value Date Recorded Sex Assigned at Not on file Legal Sex Male 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
--- OUTSIDE RECORDS SUMMARY | 2025-04-03 14:13 | XMS_ITS | Encounter Summary ---
Author Organization [facility] Address [address] [place] [address] Care Team Providers Care Fruit Press Operator Name Role Phone Opal Angela MD Primary Care Provider [phone] Encounter Details Date Type Department Care Team (Late st Contact Info) Description 07/17/2003 Outpatient Historical [facility] Pediatrics [facility] [address] [facility] [place] [address] Opal Angela MD [address] [place] [address] Social History Tobacco Use Types Packs/Day Years Used Date Smoking Tobacco: Never Assessed Sex and Gender Information Value Date Recorded Sex Assigned at Not on file Legal Sex Male 3:17 AM REGIONAL ECONOMIST Gender Identity Not on file Sexual Orientation Not on file documented as of this encounter Plan of Treatment Not on file documented as of this encounter Visit Diagnoses Not on filedocumented in this encounter Care Teams Fruit Press Operator Relationship Specialty Start Date End Date Opal Angela MD [address] [place] [address] PCP - General 05/26/08 documented as of this encounter
--- OUTSIDE RECORDS SUMMARY | 2025-04-03 14:13 | XMS_ITS | Encounter Summary ---
Author Organization [facility] Address [address] [place] [address] Care Team Providers Care Regional Vice President Life Sales Name Role Phone Opal Angela MD Primary Care Provider [phone] Encounter Details Date Type Department Care Team (Late st Contact Info) Description 01/15/2003 Outpatient Historical [facility] Pediatrics [facility] [address] [facility] [place] [address] Amy Samano MD [address] [address] Social History Tobacco Use Types Packs/Day Years Used Date Smoking Tobacco: Never Assessed Sex and Gender Information Value Date Recorded Sex Assigned at Not on file Legal Sex Male 3:17 AM MICA WASHER GLUER Gender Identity Not on file Sexual Orientation Not on file documented as of this encounter Plan of Treatment Not on file documented as of this encounter Visit Diagnoses Not on filedocumented in this encounter Care Teams Regional Vice President Life Sales Relationship Specialty Start Date End Date Opal Angela MD [address] [place] [address] PCP - General 05/26/08 documented as of this encounter
--- OUTSIDE RECORDS SUMMARY | 2025-04-03 14:13 | XMS_ITS | Encounter Summary ---
Author Organization [facility] Address [address] [place] [address] Care Team Providers Care Executive Chairman Name Role Phone Opal Angela MD Primary Care Provider [phone] Encounter Details Date Type Department Care Team (Late st Contact Info) Description 01/30/2003 Outpatient Historical [facility] Pediatrics [facility] [address] [facility] [place] [place] [address] Opal Angela MD [address] [place] [address] Social History Tobacco Use Types Packs/Day Years Used Date Smoking Tobacco: Never Assessed Sex and Gender Information Value Date Recorded Sex Assigned at Not on file Legal 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
--- OUTSIDE RECORDS SUMMARY | 2025-04-03 14:13 | XMS_ITS | Clinical Summary ---
Author Organization [facility] Address [address] [place] [address] Care Team Providers Care Quill Skinner Name Role Phone Opal Angela MD Primary Care Provider Allergies No known active allergies Medications predniSONE (DELTASONE) 20 mg tablet Take 1 Tab by mouth daily. 20 Tab 0 05/26/2014 Active Active Problems Problem Noted Date Diagnosed Date Obesity 05/29/2011 Immunizations Immunization Administration Dates Next Due (ADACEL/BOOSTRIX)(10 YR UP) TDAP VACCINE, 0.5ML, IM 05/29/2011 (HAVRIX/VAQTA)(12 MO-18 YRS) HEPATITIS A VACCINE 0.5 ML PED/ADOL 2 DOSE, IM 05/29/2011 (INFANRIX)(6 WKS-6 YRS) DIPT HERIA, TETANUS TOXOIDS, AND ACCELLULAR PERTUSSIS VACCINE (DTAP), 0.5 ML IM 06/14/2005,01/08/2001,03/23/2000,01/25,1999 (IPOL)(6 WKS AND UP) POLIOVI MARLO VACCINE, INACTIVATED (IPV), 3 DOSE, SUBCUT OR IM 06/14/2005,01/26/2000,1999 (M-M-R II/PRIORIX)(12 MO UP) MEASLES, MUMPS AND RUBELLA VIRUS VACCINE, 0.5 ML IM/SUBCUT 06/14/2005,10/19/2000 (VARIVAX)(12 MOS UP)VARICELL A VIRUS VACCINE (PF) 0.5 ML, SUB CUT 05/27/2008,10/19/2000 HIB, Unspecified Formulation 01/08/2001, 04/12/2000,01/26/2000,12/06 Hepatitis A Vaccine 05/27/2008 Hepatitis B Vaccine 01/03/2002,06/28/2000,1999 Meningococcal A Conjugate Vaccine IM 05/29/2011 Pneumococcal 7-valent conjug ate vaccine IM 01/08/2001,10/19/2000 Social History Tobacco Use Types Packs/Day Years Used Date Smoking Tobacco: Never Assessed Sex and Gender Information Value Date Recorded Sex Assigned at Not on file 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 Gender Identity Not on file Sexual Orientation Not on file Last Filed Vital Signs Vital Sign Reading Time Taken Comments Blood Pressure 138/58 05/19/2014 11:00 AM CDT Pulse - - Temperature 37.3 C (99.2 F) 05/26/2014 4:24 PM CDT Respiratory Rate - - Oxygen Saturation - - Inhaled Oxygen Concentration - - Weight 104.8 kg (231 lb) 05/26/2014 4:24 PM CDT Height 182.9 cm (6') 05/26/2014 4:24 PM CDT Body Mass Index 31.33 05/26/2014 4:24 PM CDT Plan of Treatment Health Maintenance Due Date Last Done Comments HPV VACCINES (1 - Male 3-dos e series) 2014 DTAP/TDAP/TD VACCINES (7 - T d or Tdap) 05/29/2021 05/29/2011, 06/14/2005, 01/08/2001, Additional history exists INFLUENZA VACCINE (#1) 2024 HEPATITIS B VACCINES Completed 01/03/2002, 06/28/2000, 04/12/[address] [place] [address] BLUE ACCESS CHOICE BLUE ACCESS CHOICE Care Teams Quill Skinner Relationship Specialty Start Date End Date Opal Angela MD [address] [place] [address] PCP - General 05/26/08
--- OUTSIDE RECORDS SUMMARY | 2025-04-03 14:13 | XMS_ITS | Encounter Summary ---
Author Organization [facility] Address [address] [place] [address] Care Team Providers Care Outsole Compressor Name Role Phone Opal Angela MD Primary Care Provider [phone] Encounter Details Date Type Department Care Team (Late st Contact Info) Description 12/11/2002 Outpatient Historical [facility] Pediatrics [facility] [address] [facility] [place] [address] Opal Angela MD [address] [place] [address] Social History Tobacco Use Types Packs/Day Years Used Date Smoking Tobacco: Never Assessed Sex and Gender Information Value Date Recorded Sex Assigned at Not on file Legal Sex Male 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
--- OUTSIDE RECORDS SUMMARY | 2025-04-03 14:13 | XMS_ITS | Encounter Summary ---
Author Organization [facility] Address [address] [place] [address] Care Team Providers Care Community Development Coordinator Name Role Phone Opal Angela MD Primary Care Provider [phone] Encounter Details Date Type Department Care Team (Late st Contact Info) Description 08/27/2003 Outpatient Historical [facility] Pediatrics [facility] [address] [place] [address] Opal Angela MD [address] [place] [address] Social History Tobacco Use Types Packs/Day Years Used Date Smoking Tobacco: Never Assessed Sex and Gender Information Value Date Recorded Sex Assigned at Not on file Legal Sex Male 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 Gender Identity Not on file Sexual Orientation Not on file documented as of this encounter Plan of Treatment Not on file documented as of this encounter Procedures Procedure Name Priority Date/Time Associated Diagnosis Comments CHG INFLUENZA VACCINE SPLIT 6-35 MO IM VFC 08/27/2003 12:00 AM SALES 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 documented in this encounter Visit Diagnoses Not on filedocumented in this encounter Care Teams Community Development Coordinator Relationship Specialty Start Date End Date Opal Angela MD [address] [place] [address] PCP - General 05/26/08 documented as of this encounter
--- OUTSIDE RECORDS SUMMARY | 2025-04-03 14:13 | XMS_ITS | Encounter Summary ---
Author Organization [facility] Address [address] [place] [address] Care Team Providers Care Perennial House Manager Name Role Phone Opal Angela MD Primary Care Provider [phone] Encounter Details Date Type Department Care Team (Late st Contact Info) Description 12/24/[address] 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
--- OUTSIDE RECORDS SUMMARY | 2025-04-03 14:13 | XMS_ITS | Encounter Summary ---
Author Organization [facility] Address [address] [place] [address] Care Team Providers Care Shot Peening Operator Name Role Phone Opal Angela MD Primary Care Provider [phone] Encounter Details Date Type Department Care Team (Late st Contact Info) Description 01/05/2003 Outpatient Historical [facility] Pediatrics [facility] [address] [facility] [place] [address] Opal Angela MD [address] [place] [address] Social History Tobacco Use Types Packs/Day Years Used Date Smoking Tobacco: Never Assessed Sex and Gender Information Value Date Recorded Sex Assigned at Not on file 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
--- OUTSIDE RECORDS SUMMARY | 2025-04-03 14:13 | XMS_ITS | Encounter Summary ---
Author Organization [facility] Address [address] [place] [address] Care Team Providers Care Counter Intelligence Agent Name Role Phone Opal Angela MD Primary Care Provider [phone] Encounter Details Date Type Department Care Team (Late st Contact Info) Description 10/14/[address] 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
--- OUTSIDE RECORDS SUMMARY | 2025-04-03 14:13 | XMS_ITS | Encounter Summary ---
Author Organization [facility] Address [address] [place] [address] Care Team Providers Care Chicken Picker Name Role Phone Opal Angela MD Primary Care Provider [phone] Encounter Details Date Type Department Care Team (Late st Contact Info) Description 08/29/[address] 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
--- OUTSIDE RECORDS SUMMARY | 2025-04-03 14:13 | XMS_ITS | Encounter Summary ---
Author Organization [facility] Address [address] [place] [address] Care Team Providers Care Sales Demonstrator Name Role Phone Opal Angela MD Primary Care Provider [phone] Encounter Details Date Type Department Care Team (Late st Contact Info) Description 12/13/[address] [facility] Pediatrics [facility] [address] 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
--- OUTSIDE RECORDS SUMMARY | 2025-04-03 14:13 | XMS_ITS | Encounter Summary ---
Author Organization [facility] Address [address] [place] [address] Care Team Providers Care Take Out Waiter Name Role Phone Opal Angela MD Primary Care Provider [phone] Encounter Details Date Type Department Care Team (Late st Contact Info) Description 12/13/2006 Outpatient Historical [facility] Pediatrics [facility] [address] [facility] [place] [address] Opal Angela MD [address] [place] [address] Social History Tobacco Use Types Packs/Day Years Used Date Smoking Tobacco: Never Assessed Sex and Gender Information Value Date Recorded Sex Assigned at Not on file Legal Sex Male 3:17 AM BAND TUMBLER Gender Identity Not on file Sexual Orientation Not on file documented as of this encounter Plan of Treatment Not on file documented as of this encounter Visit Diagnoses Not on filedocumented in this encounter Care Teams Take Out Waiter Relationship Specialty Start Date End Date Opal Angela MD [address] [place] [address] PCP - General 05/26/08 documented as of this encounter
--- OUTSIDE RECORDS SUMMARY | 2025-04-03 14:13 | XMS_ITS | Encounter Summary ---
Author Organization [facility] Address [address] [place] [address] Care Team Providers Care Solid Waste Manager Name Role Phone Opal Angela MD Primary Care Provider Encounter Details Date Type Department Care Team (Late st Contact Info) Description 01/18/2004 Outpatient Historical [facility]s 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
--- OUTSIDE RECORDS SUMMARY | 2025-04-03 14:13 | XMS_ITS | Clinical Summary ---
Author Organization [facility] Address [address] [facility] [place] [address] Care Team Providers Care Logging Shovel Operator Name Role Phone Opal Angela MD Primary Care Provider [phone] Source Comments [facility],non-owned Affiliates and Associated Physician Practices is amultiple site organization consisting of ambulatory clinics and hospital sitesin [place], [place], [place] and [place]. This disclosure is being madepursuant to the Care Everywhere program and may not contain all information available regarding this patient. Last updated 18.[facility] Allergies No known active allergies Medications * Be aware that medications may not be up to date on this document. Alwaysverify current medications with the patient. No known medications Active Problems No known active problems Immunizations Immunization Administration Dates Next Due MENINGOCOCCAL ACWY (MCV4P) VAC IM 06/25/2017 Family History Medical History Relation Name Comments Diabetes - Type 2 Father Hypertension Mother Relation Name Status Comments Father Alive Mother Alive Social History Tobacco Use Types Packs/Day Years Used Date Smoking Tobacco: Never Smokeless Tobacco: Never Sex and Gender Information Value Date Recorded Sex Assigned at Not on file Legal Sex Male 10:41 AM CDT Gender Identity Not on file Sexual Orientation Not on file Last Filed Vital Signs Vital Sign Reading Time Taken Comments Blood Pressure 144/80 02/18/2018 4:46 PM CDT Pulse 103 02/18/2018 4:29 PM CDT Temperature 37.2 C (98.9 F) 02/18/2018 4:29 PM CDT Respiratory Rate 20 02/18/2018 4:29 PM CDT Oxygen Saturation 97% 02/18/2018 4:29 PM CDT Inhaled Oxygen Concentration - - Weight 129.3 kg (285 lb) 02/18/2018 4:29 PM CDT Height 190.5 cm (6' 3) 02/18/2018 4:29 PM CDT Body Mass Index 35.62 02/18/2018 4:29 PM CDT Plan of Treatment Health Maintenance Due Date Last Done Comments HIV SCREENING 2014 HPV VACCINE (1 - Male 3-dose series) 2014 HEPATITIS C SCREENING 09/16/2017 DTAP/TDAP/TD VACCINES (1 - Tdap) 2018 HEPATITIS B VACCINE (1 of 3 - 19+ 3-dose series) 2018 COVID-19 VACCINE (1 - 2023-2 5 season) 2024 DEPRESSION SCREENING 10/22/2024 INFLUENZA VACCINE (Season Ended) 2025 ZOSTER VACCINE (1 of 2) 2049 MENINGOCOCCAL GROUPS A/C/Y/W VACCINE Completed 06/25/2017 HIB VACCINE Aged Out No longer eligi ble based on patient's age to complete this topic MENINGOCOCCAL (Group B) VACC INE SHARED DECISION-MAKING Aged Out No longer eligibl e based on patient's age to complete this topic PNEUMOCOCCAL VACCINE Aged Out No long er eligible based on patient's age to complete this topic Insurance [facility] Address: [facility] [id number] [address] [facility] Address: [facility] [address] [place] [address] Care Teams Logging Shovel Operator Relationship Specialty Start Date End Date Opal Angela MD [address] [place] [address] PCP - General Pediatrics 02/14/17
--- OUTSIDE RECORDS SUMMARY | 2025-04-03 14:13 | XMS_ITS | Encounter Summary ---
Author Organization [facility] Address [address] [place] [address] Care Team Providers Care Investment Banking Associate Name Role Phone Opal Angela MD Primary Care Provider [phone] Encounter Details Date Type Department Care Team (Late st Contact Info) Description 10/30/[address] 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
--- OUTSIDE RECORDS SUMMARY | 2025-04-03 14:13 | XMS_ITS | Encounter Summary ---
Author Organization [facility] Address [address] [place] [address] Care Team Providers Care Duralumin Metalworker Name Role Phone Opal Angela MD Primary Care Provider [phone] Encounter Details Date Type Department Care Team (Late st Contact Info) Description 01/03/2002 Outpatient Historical [facility] [address] [place] [address] Opal Angela MD [address] [place] [address] Social History Tobacco Use Types Packs/Day Years Used Date Smoking Tobacco: Never Assessed Sex and Gender Information Value Date Recorded Sex Assigned at Not on file Legal Sex Male 3:17 AM BUNDLER SEASONAL [place]ENER[place] Gender Identity Not on file Sexual Orientation Not on file documented as of this encounter Plan of Treatment Not on file documented as of this encounter Visit Diagnoses Not on filedocumented in this encounter Care Teams Duralumin Metalworker Relationship Specialty Start Date End Date Opal Angela MD [address] [place] [address] PCP - General 05/26/08 documented as of this encounter
--- OUTSIDE RECORDS SUMMARY | 2025-04-03 14:13 | XMS_ITS | Encounter Summary ---
Author Organization [facility] Address [address] [place] [address] Care Team Providers Care Automation Controls Expert Name Role Phone Opal Angela MD Primary Care Provider [phone] Encounter Details Date Type Department Care Team (Late st Contact Info) Description 08/27/2003 Outpatient Historical 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
--- OUTSIDE RECORDS SUMMARY | 2025-04-03 14:13 | XMS_ITS | Encounter Summary ---
Author Organization [facility] Address [address] [place] [address] Care Team Providers Care Agricultural Produce Washer Name Role Phone Opal Angela MD Primary Care Provider [phone] Encounter Details Date Type Department Care Team (Late st Contact Info) Description 09/15/2002 Outpatient Historical [facility] Pediatrics [facility] [address] [place] [address] Opal Angela MD [address] [place] [address] Social History Tobacco Use Types Packs/Day Years Used Date Smoking Tobacco: Never Assessed Sex and Gender Information Value Date Recorded Sex Assigned at Not on file Legal Sex Male 3:17 AM INFORMATICA MDM ARCHITECT Gender Identity Not on file Sexual Orientation Not on file documented as of this encounter Plan of Treatment Not on file documented as of this encounter Visit Diagnoses Not on filedocumented in this encounter Care Teams Agricultural Produce Washer Relationship Specialty Start Date End Date Opal Angela MD [address] [place] [address] PCP - General 05/26/08 documented as of this encounter
[2025-04-03 14:25] VITALS: BP 138/79; PULSE 74; RESP 18; TEMP 36.4; O2SAT 99
--- NOTE | 2025-04-03 14:29 | ED_ITS ---
HPI - Skin/Abscess/Foreign Bdy General Chief complaint: Skin/Abscess/Foreign Body Stated complaint: poison kamila Time Seen by Provider: 04/03/25 14:29 Source: patient Mode of arrival: ambulatory Limitations: no limitations History of Present Illness HPI narrative: 24 yo M presents with c/o poison kamila rash for 2 days. 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 c/o itching. Taking benadryl and OTC poison kamila cream. All systems reviewed and negative except as noted above. Related Data Allergies Allergy/AdvReac Type Severity Reaction Status Date / Time No Known Allergies Allergy Verified 04/03/25 14:16 Review of Systems Review of Systems: CONSTITUTIONAL: Denies fever, chills, or sweats. EYES: Denies visual changes, redness, or discharge. ENT: Denies rhinorrhea, congestion, sore throat, or otalgia. CARDIOVASCULAR: Denies chest pain, palpitations, or edema. RESPIRATORY: Denies cough or dyspnea. GASTROINTESTINAL: Denies abdominal pain, nausea, vomiting, or diarrhea. GENITOURINARY: Denies dysuria or hematuria. SKIN: Reports itching and rash MUSCULOSKELETAL: Denies back pain, joint pain, or myalgia. NEUROLOGIC: Denies headache, numbness, or weakness. PSYCHIATRIC: Denies anxiety or depression. All other systems reviewed are negative, except as documented in HPI. PMFSH Comments At time of signature, agree with nursing past medical, surgical, social and family history. There is no relevant family history pertinent to the presenting complaint. Exam Narrative: GENERAL: This is a well-nourished, well-developed patient, in no apparent distress. HEAD: normocephalic, atraumatic. EYES: PERRL. Sclera clear/white. Vision is grossly intact. EARS: External ears normal NOSE: External nose normal NECK: Neck supple, non-tender without lymphadenopathy, masses or thyromegaly. CARDIOVASCULAR: Regular rate and rhythm without murmurs, gallops, or rubs. RESPIRATORY: Clear to auscultation. Breath sounds equal bilaterally. No wheezes, rales, or rhonchi. SKIN: warm, Dry, intact, good texture and turgor. erythematous rash to face, bilateral arms, R shoulde exending along R side of chest and ABD NEURO: awake, alert, and oriented to person, place and time. There were no obvious focal neurologic abnormalities. EXTREMITIES: No joint tenderness, effusion, or edema noted. Course Course Level of Care: Express Care Visit Vital Signs Vital signs: Vital Signs Temperature 36.4 C 04/03/25 14:25 Pulse Rate 74 04/03/25 14:25 Respiratory Rate 18 04/03/25 14:25 Blood Pressure 138/79 04/03/25 14:25 Pulse Oximetry 99 04/03/25 14:25 Oxygen Delivery Room Air 04/03/25 14:25 Temperature 36.4 C 04/03/25 14:25 Pulse Rate 74 04/03/25 14:25 Respiratory Rate 18 04/03/25 14:25 Blood Pressure 138/79 04/03/25 14:25 Pulse Oximetry 99 04/03/25 14:25 Oxygen Delivery Room Air 04/03/25 14:25 reviewed MDM - Skin/Abscess/Foreign Bdy MDM Narrative Medical decision making narrative: will treat poison kamila rash with prednisone taper, triamcinolone and continue antihistamine at home. Patient is alert, nontoxic. Differential Diagnosis Differential diagnosis: Likely urticaria and contact dermatitis Discharge Plan Discharge Clinical Impression: Dermatitis due to plants, including poison kamila, sumac, and oak Patient Disposition: Home Condition: Stable Instructions: Poison Kamila (ED) Additional Instructions: take medications as prescribed. Avoid applying triamcinolone to face. Take a daily antihistamine such as Claritin or Zyrtec. See your doctor if rash is not improving. Patient Language: Yi Prescriptions: New triamcinolone acetonide 0.1 % cream 1 applic topical BID PRN (Reason: poison kamila) Qty: 80 0RF prednisone 10 mg tablet See Rx Instructions .ROUTE .COMPLEX Qty: 42 0RF Rx Instructions: Take 6 tablets for 2 days Take 5 tablets for 2 days Take 4 tablets for 2 days Take 3 tablets for 2 days Take 2 tablets for 2 days Take 1 tablet for 2 days Follow-up/Referrals: UNKNOWN,DOCTOR [Non-Staff] - Time of Disposition: 14:37
== END 2025-04-03 14:39 | disposition home or self-care (01) ==
PROVIDERS: Emergency Provider Nurse Practitioner Family
DX: L23.7 Allergic contact dermatitis due to plants, except food (principal)
CPT/HCPCS: 99203; G0463